=== PATIENT | female | born 1975 | race Caucasian/White ===

== ENCOUNTER 2016-12-24 11:27 | Emergency (ER) | payer OTHER ==
--- NOTE | 2016-12-24 20:45 | ED NURSING NOTES ---
Clinical Report - Nurses [facility] [address] [place] [address] 12/24/2016 11:28 Patient: GUMARO ROTHMAN TRIAGE Triage time 11:28. Acuity: LEVEL 3. Chief Complaint: SUICIDAL THOUGHTS and THOUGHTS OF HARMING SELF and ATTEMPT TO HARM SELF (OD). 11:12/24/16. 11:12/24/16. Alert. No acute distress. ( Pt took 20 Zoloft, then vomited, then took 10 more. Pt has been hearing voices and stated to harm herself. Pt with past history and hospitalization of SI.). ED COMA SCORE: Ed Coma Scale: 15- eyes open spontaneously (4); best verbal response- oriented x 4 (5); best motor response- obeys commands (6). --11:36 Faisal Marroquin R.N. 11:12/24/16. BP: 135/84. HR: 85. RR: 20. O2 saturation: 100% on room air. Temp: 98.4 F (oral). Pain level now: 0/10. --11:36 Faisal Marroquin R.N. BREATHALYZER: Breathalyzer (.00). --11:50 Mary Maldonado BREATHALYZER: Breathalyzer (.00). --11:51 Mary Maldonado. Weight: 72.5 kg stated. Height/Length: 63 inches Per Patient. BMI: 28.3. --11:30 Faisal Marroquin R.N. Medications Sertraline HCl Oral 150mg, daily. --11:33 Faisal Marroquin R.N. Medication/allergy information source: the patient and EMS. --11:36 Faisal Marroquin R.N. Allergies Sulfa Antibiotics. --11:33 Faisal Marroquin R.N. Prozac. --11:33 Faisal Marroquin R.N. History Arrived by private vehicle, and unaccompanied. 11:12/24/16. Treatment VENEER DRIER: None. PAST MEDICAL HX: Last normal menstrual period- 2 weeks ago. Immunizations not up to date. SOCIAL HX: Current every day light tobacco smoker (cigarette)- less than 1/2 a pack per day. History of occasional drug use: cocaine, marijuana. No alcohol use. No infectious disease exposure. ABUSE ASSESSMENT: No report of abuse. SELF HARM ASSESSMENT: A self harm assessment was performed. The patient answered "yes" to the question "Have you recently felt down, depressed, or hopeless?", "Have you noticed less interest or pleasure in doing things?", "Do you have thoughts of harming or killing yourself?", "Are you here because you tried to hurt yourself?", "Have you ever tried to hurt yourself before today?" and "Have you recently had thoughts about harming or killing others?" and "no" to the question "Do you have any dangerous items in your possession?". The patient reports their behavior as anxious. In the ED the patient has been withdrawn. A further in-depth assessment is planned. The patient has been placed under 1-on-1 supervision with bedside precautions. The patient was placed in a precautionary setting. Clothes and valuables were removed and placed at the nurses station. The ED physician has been notified. FALL RISK ASSESSMENT: Fall risk assessment completed. No fall risk identified. NUTRITIONAL RISK ASSESSMENT: The nutritional risk assessment revealed no deficiencies. FUNCTIONAL ASSESSMENT: Functional assessment: no impairments noted. LEARNING NEEDS ASSESSMENT: The learning needs assessment revealed no barriers. SKIN INTEGRITY ASSESSMENT: Skin integrity risk assessment completed. No skin integrity risk identified. --11:36 Faisal Marroquin R.N. SOCIAL HX: Occasional alcohol use. --11:37 Faisal Marroquin R.N. Treatment VENEER DRIER: See EMS report. HR: 85. RR: 18. O2 saturation: 100 % room air. --11:37 Faisal Marroquin R.N. SOCIAL HX: History of drug use: cocaine, methamphetamines. Is a recovering addict. (Pt states she used cocaine, used for a year straight, at this time pt used meth on and off. Pt states she did not used for 6 months and relapsed, last used this past Saturday). --18:31 Faisal Marroquin R.N. PROBLEMS: Anxiety Reaction. Depression. Suicidal Ideation. --11:34 Faisal Marroquin R.N. Acute Pain. Pharyngitis. Dental Pain. Fibromyalgia. ADD - Attention Deficit Disorder. Bipolar Disorder. Condyloma Acuminatum. Herpes Genitalis. Abdominal Pain. Vaginitis. Immunizations. Ovarian Cyst. Vaginal Delivery. Nephrolithiasis. --18:22 Faisal Marroquin R.N. Pelvic Inflammatory Disease [RuleOut]. --18:22 Faisal Marroquin R.N. ADDITIONAL SURGERIES: Gallbladder Surgery. --11:34 Faisal Marroquin R.N. Cholecystectomy. LEEP. Ureteral Stent. --18:22 Faisal Marroquin R.N. Assessment 11:12/24/16. --11:36 Faisal Marroquin R.N. Interventions 11:12/24/16. 11:12/24/16. ID and allergy band on patient. ID and allergy band checked. Protocol initiated (SI). To treatment room. --11:36 Faisal Marroquin R.N. PHYSICAL ASSESSMENT 11:35 12/24/16. Ambulatory to room. GENERAL / NEURO / PSYCH: Alert. Oriented X 4. Appears anxious. Patient's mood/affect appears abnormal. Patient appears calm and cooperative. Appears anxious. RESPIRATORY: Respirations not labored. CVS: Capillary refill less than 2 seconds. SKIN: Skin is warm and dry. --11:35 Faisal Marroquin R.N. NURSING PROGRESS NOTES 11:35 12/24/16. The plan of care for this patient has been created. Patient gowned. Head of bed elevated. Suicide precautions maintained: a safety sweep of the room has been completed. Room made safe and stripped of hazardous items. Continuous one on one supervision, checks performed every 15 minutes, clothing / valuables removed and placed at the nurse's station. Patient placed in direct sight of the nurse's station. ED Physician has been notified. Two patient identifiers checked. Call light placed in reach. Side rails up x 2. Bed placed in lowest position. Brakes of bed on. Brakes of chair on. --11:35 Faisal Marroquin R.N. 11:36 12/24/16. Patient ready for evaluation- chart flagged and notification provided. --11:36 Faisal Marroquin R.N. 12:03 12/24/16. Patient ID band checked for patient name and birthdate. Clean catch urine collected with return of yellow-colored urine; sample sent to lab for drug screen. Specimen labeled in the presence of the patient. --12:03 Faisal Marroquin R.N. 12:27 12/24/16. ( Poison Control center called and advised to order CMP, Tyelonol and ASA level and ECG). --12:27 Faisal Marroquin R.N. 12:32 12/24/2016 Site #1 started via IV in the right hand with an 22g angiocath; two attempts. Saline lock flushed. --12:32 Louisa Morrison R.N. 12:38 12/24/16. EKG time: (6909). EKG was ordered, performed by a tech and shown to the ED physician. --12:38 Faisal Marroquin R.N. 12:44 12/24/16. Cardiac rhythm: normal sinus rhythm; (73). monitoring analyst, pulse oximeter and NIBP monitor placed on patient; monitor alarms on. --12:44 Faisal Marroquin R.N. 12:45 12/24/16. BP: 122/76. HR: 64. RR: 14. O2 saturation: 100% on room air. --12:45 Faisal Marroquin R.N. 12:45 12/24/16. Cardiac rhythm: normal sinus rhythm. --12:45 Faisal Marroquin R.N. 12:46 12/24/16. The patient reports no complaints and she is calm, resting quietly and sleeping. ( Denies SI currently, pt states she is feeling depressed currently and feels that her OD attempt was "stupid idea"). GENERAL / NEURO / PSYCH: Alert. Oriented X 4. Patient appears calm and cooperative. --12:46 Faisal Marroquin R.N. 13:48 12/24/16. ( PAT team being called). --13:48 Faisal Marroquin R.N. 13:59 12/24/16. ( PAT team called at 1350, will call back on report time to [facility]). --13:59 Faisal Marroquin R.N. 14:00 12/24/16. BP: 126/74 (regular adult cuff) taken on the left arm, via an automated monitor, while lying. HR: 75 (regular). RR: 21. O2 saturation: 100% on room air. Pain level now: 0/10. --14:41 Louisa Morrison R.N. 14:00 late entry - PM. Cardiac rhythm: normal sinus rhythm. Reassurance given. GENERAL / NEURO / PSYCH: The patient reports anxiety. Alert. Oriented X 4. Patient appears calm and cooperative. Two patient identifiers checked. Call light placed in reach. Side rails up x 1. Brakes of bed on. Brakes of chair on. --14:41 Louisa Morrison R.N. 14:59 12/24/16. Cardiac rhythm: normal sinus rhythm. --14:59 Faisal Marroquin R.N. 14:59 12/24/16. BP: 130/71. HR: 75. RR: 18. O2 saturation: 100% on room air. --14:59 Faisal Marroquin R.N. 15:28 12/24/16. Patient informed about reason for wait and about plan of care (PAT team). --15:28 Faisal Marroquin R.N. 15:46 12/24/2016 Tylenol (Acetaminophen) PO 1000 mg given. Allergies verified and confirmed 5 rights. --15:46 Faisal Marroquin R.N. 15:47 12/24/16. BP: 131/76. HR: 88. RR: 16. O2 saturation: 100% on room air. --15:47 Faisal Marroquin R.N. 15:47 12/24/16. Cardiac rhythm: normal sinus rhythm; (85). --15:47 Faisal Marroquin R.N. 15:48 12/24/16. ( PAT team is on the way). --15:48 Faisal Marroquin R.N. 15:53 12/24/2016 NICOTINE Topical 21 mg. Applied to the right upper arm. Allergies verified and confirmed 5 rights. --15:53 Faisal Marroquin R.N. 16:04 12/24/16. ( PAT team here). --16:04 Faisal Marroquin R.N. 17:00 12/24/2016 Xanax (ALPRAZolam) PO 0.5 mg given. Allergies verified and confirmed 5 rights. --17:00 Faisal Marroquin R.N. 17:00 12/24/16. BP: 121/72. HR: 80. RR: 12. O2 saturation: 99% on room air. --17:01 Faisal Marroquin R.N. 17:12/24/16. Cardiac rhythm: normal sinus rhythm. --17:01 Faisal Marroquin R.N. 17:36 12/24/16. Patient and family informed about reason for wait and about plan of care. --17:36 Faisal Mraroquin R.N. 17:36 12/24/16. ( Pt to be a transfer for psych admission). --17:36 Faisal Marroquin R.N. 18:06 12/24/16. ( Gave pt a snack, juice. Pt is calm and feels better after the PO Xanax). --18:06 Faisal Marroquin R.N. 18:21 12/24/16. Cardiac rhythm: normal sinus rhythm; (82). --18:21 Faisal Marroquin R.N. 18:20 12/24/16. BP: 114/75. HR: 82. RR: 18. O2 saturation: 98% on room air. Temp: 98.2 F. Pain level now: 05/11. --18:21 Faisal Marroquin R.N. 18:21 12/24/16. ( Pt to transfer, possibly [facility], PAT team is working on this). --18:21 Faisal Marroquin R.N. 18:24 12/24/16. ( Pt is feeling anxious, pt aware she is transferring to higher level of care. This helped calm pt. Reinforced to patient that she needs to sleep. Will monitor close.). --18:24 Faisal Marroquin R.N. 18:24 12/24/16. Patient informed about reason for wait and about plan of care. --18:24 Faisal Marroquin R.N. 18:52 12/24/16. ( Updated poison control about pts status, informed about pts status, POC and that pt will be transferring to [facility]). --18:52 Faisal Marroquin R.N. 19:03 12/24/16. Care transferred and report given (Aaron Villarreal RN). --19:03 Faisal Marroquin R.N. 19:03. Care transferred and report received. --19:07 Aaron Saavedra R.N. 19:17 12/24/16. ( Gave pt water, pt has voided multiple times, assisted pt with walking to bathroom for suicide precautions. Pt has been calm and compliant while in ER.). --19:17 Faisal Marroquin R.N. 19:29 12/24/16. ( ETA of Ambulance is 2 hrs, notified [facility] RN, Edelmira, RN pt to go to bed 714 Bed 1). --19:29 Faisal Marroquin R.N. 19:40 12/24/2016 Ibuprofen PO 600 mg given. Allergies verified and confirmed 5 rights. --19:40 Aaron Saavedra R.N. 20:14 Assisted pt to restroom and back to bed. --20:14 Aaron Saavedra R.N. 20:16 Patient given her cell phone - ok'd by Dr. Edwards. --20:17 Aaron Saavedra R.N. DISPOSITION / DISCHARGE 19:28 12/24/16. Report was given to a nurse via a phone call. Report included patient's care, treatment, medications, reviewed medication reconcilliation, and condition (including any recent changes or anticipated changes). All questions were answered. Report was acknowledged and care was transferred. (Edelmira, MISTY at [facility] at [phone]). --19:28 Faisal Marroquin R.N. 20:36. Condition at departure: stable. No learning barriers present. Transferred to [facility]. Summary of care provided to transport team. FALL RISK ASSESSMENT: Fall risk assessment completed. No fall risk identified. --20:36 Aaron Saavedra R.N. 20:35 12/24/16. BP: 118/73. HR: 80. RR: 17. O2 saturation: 100% on room air. Pain level now: 04/10. --20:36 Aaron Saavedra R.N. Report was given in person. Report included patient's care, treatment, medications, reviewed medication reconcilliation, and condition (including any recent changes or anticipated changes). All questions were answered. Report was acknowledged. ([facility]). --20:41 Aaron Saavedra R.N. 20:47 Callled and informed Edelmira of updated ETA. --20:48 Aaron Saavedra R.N. Departure time: 21:00. --21:00 Aaron Saavedra R.N. Locked/Released at 12/24/2016 21:57 by Aaron Saavedra R.N.
--- NOTE | 2016-12-24 20:45 | ED CLINICAL REPORT ---
Clinical Report - Physicians/Mid Levels [facility] [address] [place] [address] 12/24/2016 11:28 Patient: GUMARO ROTHMAN Time Seen: 11:45 Dec 24 2016. Arrived- By ambulance. Historian- EMS personnel. HISTORY OF PRESENT ILLNESS Chief Complaint: DRUG OVERDOSE and SUICIDE ATTEMPT. This occurred just prior to arrival. (patient indicates that she tried to kill herself today. She feels she's a burden to her family as she lost her job and has had to move home. That she has small kids but feels it be better off with her mother. States that her mother does not like her anyway. Indicates that her grandmother committed suicide and was successful. She indicates she's had depression for several years but it got worse over the last couple of weeks due to the loss of her job. She's been on Zoloft for some time to control her symptoms. She says that she took 20 Zoloft and then vomited them up. She then tried to swallow 10 more Zoloft And vomited again. Then tried to swallow 5 more Zoloft. Patient indicates she's never been this intense about committing suicide. She has had prior milder attempts. She denies any other substances.). No toxic symptoms present. Single drug taken- Zolioft: Up to 35 tabs. The patient has experienced situational problems. No alcohol recently or recent drug use. The symptoms are described as moderate. The patient has been depressed. Has had suicidal thoughts. Similar symptoms previously: Milder. Recent medical care: Not recently seen/assessed. REVIEW OF SYSTEMS The patient has had a headache. No dizziness, weakness, chest pain, palpitations or abdominal pain. No vomiting, diarrhea, black stools, fever or sore throat. No cough, difficulty breathing, difficulty with urination, skin rash or enlarged lymph nodes. All systems otherwise negative, except as recorded above. PAST HISTORY ( Anxiety Reaction. Depression. Suicidal Ideation. --11:34 Faisal Marroquin, RReinaldo. ADDITIONAL SURGERIES: Gallbladder Surgery.). Medications: Sertraline HCl Oral 150mg, daily. Allergies: Prozac. Sulfa Antibiotics. SOCIAL HISTORY Heavy tobacco smoker (cigarette)- less than 1 pack per day. History of drug use: cocaine, marijuana. No alcohol use. ADDITIONAL NOTES The nursing notes have been reviewed. PHYSICAL EXAM Vital Signs: 12/24/2016 11:28 BP: 135/84. HR: 85. RR: 20. O2 saturation: 100%. Temp: 98.4 F. Pain level now: 0/10. Appearance: Alert. Anxious. Is tearful. Eyes: Pupils equal, round and reactive to light. No nystagmus. Extraocular movements normal. ENT: Normal ENT inspection. TM's normal. Pharynx normal. Neck: Normal inspection. Neck supple. CVS: Normal heart rate and rhythm. Heart sounds normal. Pulses normal. Respiratory: No respiratory distress. Breath sounds normal. Abdomen: Soft and nontender. Back: Normal inspection. Skin: Skin warm. Normal skin color. No rash. Extremities: Extremities exhibit normal ROM. No lower extremity edema. Neuro: Alert. Oriented X 3. Mood/affect normal. Speech normal. Cranial nerves normal (as tested). No cerebellar findings. No motor deficit. No sensory deficit. Reflexes normal. LABS, X-RAYS, AND EKG EKG: Normal sinus rhythm. Rate: 58. Bradycardia. Normal P waves. Normal QRS complex. Normal axis. Laboratory Tests: Urine: (CASTRO: 12/24/2016 11:35) ( [facility] 12/24/2016 12:36) Final results Test Result Flag Units (Reference) URINE NEGATIVE CBC w Diff: (CASTRO: 12/24/2016 12:40) ( [facility] 12/24/2016 12:57) Final results Test Result Flag Units (Reference) WHITE BLOOD COUNT 9.3 K/uL (4.5-11.5) RED BLOOD COUNT 4.35 M/uL (4.00-5.20) HEMOGLOBIN 13.6 gm/dL (12.0-16.0) HEMATOCRIT 40.0 % (36.0-46.0) MEAN CELL VOLUME 92 fL (80-100) MEAN CORPUSCULAR HGB 31 pg (26-34) MEAN CORPUSCULAR HGB CONC 34 g/dL (31-37) RED CELL DISTRIBUTION WIDTH 11.8 % (11.6-14.8) PLATELET COUNT 245 K/uL (150-400) NEUTROPHIL % 73.8 % (50-75) LYMPH % 16.8 L % (25-40) MONO % 8.3 % (3-14) EOSINOPHIL % 0.4 % (0-4) BASOPHIL % 0.7 % (0-2) Salicylate Level: (CASTRO: 12/24/2016 12:40) ( MsgRcvd 12/24/2016 13:14) Final results Test Result Flag Units (Reference) SALICYLATE 3.2 mg/dL (2.8-20) CMP: (CASTRO: 12/24/2016 12:40) ( MsgRcvd 12/24/2016 13:27) Final results Test Result Flag Units (Reference) GLUCOSE 116 H mg/dL (70-110) BUN 8 mg/dL (7-18) CREATININE 0.6 mg/dL (0.6-1.3) Estimated GFR >60 mL/min Estimated GFR- >60 mL/min Note: Persistent reduction over 3 months in eGFR<60 mL/min/1.73 m2 defines CKD. Patients with eGFR values>=60 mL/min/1.73 m2 may also have CKD if evidence ofpersistent proteinuria. Additional information may be foundat www.kidney.org. SODIUM 140 mmol/L (136-145) POTASSIUM 3.6 mmol/L (3.5-5.1) CHLORIDE 104 mmol/L (98-107) CARBON DIOXIDE 25 mmol/L (21-32) CALCIUM 8.9 mg/dL (8.5-10.1) TOTAL PROTEIN 7.1 g/dL (6.4-8.2) ALBUMIN 3.6 g/dL (3.3-5.0) BILIRUBIN, TOTAL 0.3 mg/dL (0.0-1.0) ALKALINE PHOSPHATASE 55 U/L (46-116) AST (SGOT) 15 U/L (15-37) ALT (SGPT) 21 U/L (12-78) ACETAMINOPHEN < 3 L ug/mL (10-30) Urine Drug Screen: (CASTRO: 12/24/2016 11:35) ( MsgRcvd 12/24/2016 12:25) Final results Test Result Flag Units (Reference) AMPHETAMINE/METHAMPHETAMINE NEGATIVE (NEGATIVE) BARBITURATE NEGATIVE (NEGATIVE) BENZODIAZEPINE NEGATIVE (NEGATIVE) CANNABINOID POSITIVE H (NEGATIVE) COCAINE NEGATIVE (NEGATIVE) ECSTASY NEGATIVE (NEGATIVE) METHADONE NEGATIVE (NEGATIVE) OPIATE NEGATIVE (NEGATIVE) The urine drug screen is a qualitative screening test fordrug overdose and abuse. All screen results should beconsidered as presumptive.Drugs screened for are as follows:BenzodiazepinesCocaineAmphetamines/MetamphetaminesTHC (Tetrahydrocannabinol)OpiatesBarbituratesEcstasyMethadonePositive results are unconfirmed. For confirmation, notifythe lab for the specimen to be sent to the reference lab.All confirmations must be performed by a differentmethodology.The ingestion of natural herbal and plant productscontaining Ephedra/Ephedra metabolites can produce in urineone or more substances capable of cross reacting withamphetamine/methamphetamine immunoassays. These testsprovide a preliminary result only. A more specificalternative chemical method must be used to obtain aconfirmed analytical result. . PROGRESS AND PROCEDURES Course of Care: patient's OD was intentional with admission to try to kill herself. She is now involuntary until P clears. Her urine tox is negative and her alcohol level 0. She does not have a toxidrome and is cleared to be seen by P. 13:44 12/24/16. P called NO toxidrome with OD meds taken. Tylenol then motrin for OSULLIVAN Xanax 0.5 mg po for anxiety. 20:12 12/24/16. [facility] has evaluated the patient and found a bed for her at the [facility]. Patient will not contract for safety. Patient is stable. Patient/family counseled. Old medical records ordered. Disposition: Transferred to [facility]. CLINICAL IMPRESSION Intentional single drug overdose (Zoloft). Suicide attempt (Electronically signed by Evin Edwards MD 12/25/2016 10:13)
--- NOTE | 2016-12-24 20:45 | ED NURSING NOTES ---
Clinical Report - [facility] [address] [place] [address] 12/24/2016 11:28 Patient: GUMARO ROTHMAN TRIAGE Triage time 11:28. Acuity: LEVEL 3. Chief Complaint: SUICIDAL THOUGHTS and THOUGHTS OF HARMING SELF and ATTEMPT TO HARM SELF (OD). 11:12/24/16. 11:12/24/16. Alert. No acute distress. ( Pt took 20 Zoloft, then vomited, then took 10 more. Pt has been hearing voices and stated to harm herself. Pt with past history and hospitalization of SI.). ED COMA SCORE: Ed Coma Scale: 15- eyes open spontaneously (4); best verbal response- oriented x 4 (5); best motor response- obeys commands (6). --11:36 Faisal Marroquin R.N. 11:12/24/16. BP: 135/84. HR: 85. RR: 20. O2 saturation: 100% on room air. Temp: 98.4 F (oral). Pain level now: 0/10. --11:36 Faisal Marroquin R.N. BREATHALYZER: Breathalyzer (.00). --11:50 Mary Mladonado BREATHALYZER: Breathalyzer (.00). --11:51 Mary Maldonado. Weight: 72.5 kg stated. Height/Length: 63 inches Per Patient. BMI: 28.3. --11:30 Faisal Marroquin R.N. Medications Sertraline HCl Oral 150mg, daily. --11:33 Faisal Marroquin R.N. Medication/allergy information source: the patient and EMS. --11:36 Faisal Marroquin R.N. Allergies Sulfa Antibiotics. --11:33 Faisal Marroquin R.N. Prozac. --11:33 Faisal Marroquin R.N. History Arrived by private vehicle, and unaccompanied. 11:12/24/16. Treatment AUTOMATION LEAD: None. PAST MEDICAL HX: Last normal menstrual period- 2 weeks ago. Immunizations not up to date. SOCIAL HX: Current every day light tobacco smoker (cigarette)- less than 1/2 a pack per day. History of occasional drug use: cocaine, marijuana. No alcohol use. No infectious disease exposure. ABUSE ASSESSMENT: No report of abuse. SELF HARM ASSESSMENT: A self harm assessment was performed. The patient answered "yes" to the question "Have you recently felt down, depressed, or hopeless?", "Have you noticed less interest or pleasure in doing things?", "Do you have thoughts of harming or killing yourself?", "Are you here because you tried to hurt yourself?", "Have you ever tried to hurt yourself before today?" and "Have you recently had thoughts about harming or killing others?" and "no" to the question "Do you have any dangerous items in your possession?". The patient reports their behavior as anxious. In the ED the patient has been withdrawn. A further in-depth assessment is planned. The patient has been placed under 1-on-1 supervision with bedside precautions. The patient was placed in a precautionary setting. Clothes and valuables were removed and placed at the nurses station. The ED physician has been notified. FALL RISK ASSESSMENT: Fall risk assessment completed. No fall risk identified. NUTRITIONAL RISK ASSESSMENT: The nutritional risk assessment revealed no deficiencies. FUNCTIONAL ASSESSMENT: Functional assessment: no impairments noted. LEARNING NEEDS ASSESSMENT: The learning needs assessment revealed no barriers. SKIN INTEGRITY ASSESSMENT: Skin integrity risk assessment completed. No skin integrity risk identified. --11:36 Faisal Marroquin R.N. SOCIAL HX: Occasional alcohol use. --11:37 Faisal Marroquin R.N. Treatment AUTOMATION LEAD: See EMS report. HR: 85. RR: 18. O2 saturation: 100 % room air. --11:37 Faisal Marroquin R.N. SOCIAL HX: History of drug use: cocaine, methamphetamines. Is a recovering addict. (Pt states she used cocaine, used for a year straight, at this time pt used meth on and off. Pt states she did not used for 6 months and relapsed, last used this past Saturday). --18:31 Faisal Marroquin R.N. PROBLEMS: Anxiety Reaction. Depression. Suicidal Ideation. --11:34 Faisal Marroquin R.N. Acute Pain. Pharyngitis. Dental Pain. Fibromyalgia. ADD - Attention Deficit Disorder. Bipolar Disorder. Condyloma Acuminatum. Herpes Genitalis. Abdominal Pain. Vaginitis. Immunizations. Ovarian Cyst. Vaginal Delivery. Nephrolithiasis. --18:22 Faisal Marroquin R.N. Pelvic Inflammatory Disease [RuleOut]. --18:22 Faisal Marroquin R.N. ADDITIONAL SURGERIES: Gallbladder Surgery. --11:34 Faisal Marroquin R.N. Cholecystectomy. LEEP. Ureteral Stent. --18:22 Faisal Marroquin R.N. Assessment 11:12/24/16. --11:36 Faisal Marroquin R.N. Interventions 11:12/24/16. 11:12/24/16. ID and allergy band on patient. ID and allergy band checked. Protocol initiated (SI). To treatment room. --11:36 Faisal Marroquin R.N. PHYSICAL ASSESSMENT 11:35 12/24/16. Ambulatory to room. GENERAL / NEURO / PSYCH: Alert. Oriented X 4. Appears anxious. Patient's mood/affect appears abnormal. Patient appears calm and cooperative. Appears anxious. RESPIRATORY: Respirations not labored. CVS: Capillary refill less than 2 seconds. SKIN: Skin is warm and dry. --11:35 Faisal Marroquin R.N. NURSING PROGRESS NOTES 11:35 12/24/16. The plan of care for this patient has been created. Patient gowned. Head of bed elevated. Suicide precautions maintained: a safety sweep of the room has been completed. Room made safe and stripped of hazardous items. Continuous one on one supervision, checks performed every 15 minutes, clothing / valuables removed and placed at the nurse's station. Patient placed in direct sight of the nurse's station. ED Physician has been notified. Two patient identifiers checked. Call light placed in reach. Side rails up x 2. Bed placed in lowest position. Brakes of bed on. Brakes of chair on. --11:35 Faisal Marroquin R.N. 11:36 12/24/16. Patient ready for evaluation- chart flagged and notification provided. --11:36 Faisal Marroquin R.N. 12:03 12/24/16. Patient ID band checked for patient name and birthdate. Clean catch urine collected with return of yellow-colored urine; sample sent to lab for drug screen. Specimen labeled in the presence of the patient. --12:03 Faisal Marroquin R.N. 12:27 12/24/16. ( Poison Control center called and advised to order CMP, Tyelonol and ASA level and ECG). --12:27 Faisal Marroquin R.N. 12:32 12/24/2016 Site #1 started via IV in the right hand with an 22g angiocath; two attempts. Saline lock flushed. --12:32 Louisa Morrison R.N. 12:38 12/24/16. EKG time: (7329). EKG was ordered, performed by a tech and shown to the ED physician. --12:38 Faisal Marroquin R.N. 12:44 12/24/16. Cardiac rhythm: normal sinus rhythm; (73). weapons engineer, pulse oximeter and NIBP monitor placed on patient; monitor alarms on. --12:44 Faisal Marroquin R.N. 12:45 12/24/16. BP: 122/76. HR: 64. RR: 14. O2 saturation: 100% on room air. --12:45 Faisal Marroquin R.N. 12:45 12/24/16. Cardiac rhythm: normal sinus rhythm. --12:45 Faisal Marroquin R.N. 12:46 12/24/16. The patient reports no complaints and she is calm, resting quietly and sleeping. ( Denies SI currently, pt states she is feeling depressed currently and feels that her OD attempt was "stupid idea"). GENERAL / NEURO / PSYCH: Alert. Oriented X 4. Patient appears calm and cooperative. --12:46 Faisal Marroquin R.N. 13:48 12/24/16. ( PAT team being called). --13:48 Faisal Marroquin R.N. 13:59 12/24/16. ( PAT team called at 1350, will call back on report time to [facility]). --13:59 Faisal Marroquin R.N. 14:00 12/24/16. BP: 126/74 (regular adult cuff) taken on the left arm, via an automated monitor, while lying. HR: 75 (regular). RR: 21. O2 saturation: 100% on room air. Pain level now: 0/10. --14:41 Louisa Morrison R.N. 14:00 late entry - PM. Cardiac rhythm: normal sinus rhythm. Reassurance given. GENERAL / NEURO / PSYCH: The patient reports anxiety. Alert. Oriented X 4. Patient appears calm and cooperative. Two patient identifiers checked. Call light placed in reach. Side rails up x 1. Brakes of bed on. Brakes of chair on. --14:41 Louisa Morrison R.N. 14:59 12/24/16. Cardiac rhythm: normal sinus rhythm. --14:59 Faisal Marroquin R.N. 14:59 12/24/16. BP: 130/71. HR: 75. RR: 18. O2 saturation: 100% on room air. --14:59 Faisal Marroquin R.N. 15:28 12/24/16. Patient informed about reason for wait and about plan of care (PAT team). --15:28 Faisal Marroquin R.N. 15:46 12/24/2016 Tylenol (Acetaminophen) PO 1000 mg given. Allergies verified and confirmed 5 rights. --15:46 Faisal Marroquin R.N. 15:47 12/24/16. BP: 131/76. HR: 88. RR: 16. O2 saturation: 100% on room air. --15:47 Faisal Marroquin R.N. 15:47 12/24/16. Cardiac rhythm: normal sinus rhythm; (85). --15:47 Faisal Marroquin R.N. 15:48 12/24/16. ( PAT team is on the way). --15:48 Faisal Marroquin R.N. 15:53 12/24/2016 NICOTINE Topical 21 mg. Applied to the right upper arm. Allergies verified and confirmed 5 rights. --15:53 Faisal Marroquin R.N. 16:04 12/24/16. ( PAT team here). --16:04 Faisal Marroquin R.N. 17:00 12/24/2016 Xanax (ALPRAZolam) PO 0.5 mg given. Allergies verified and confirmed 5 rights. --17:00 Faisal Marroquin R.N. 17:00 12/24/16. BP: 121/72. HR: 80. RR: 12. O2 saturation: 99% on room air. --17:01 Faisal Marroquin R.N. 17:12/24/16. Cardiac rhythm: normal sinus rhythm. --17:01 Faisal Marroquin R.N. 17:36 12/24/16. Patient and family informed about reason for wait and about plan of care. --17:36 Faisal Marroquin R.N. 17:36 12/24/16. ( Pt to be a transfer for psych admission). --17:36 Faisal Marroquin R.N. 18:06 12/24/16. ( Gave pt a snack, juice. Pt is calm and feels better after the PO Xanax). --18:06 Faisal Marroquin R.N. 18:21 12/24/16. Cardiac rhythm: normal sinus rhythm; (82). --18:21 Faisal Marroquin R.N. 18:20 12/24/16. BP: 114/75. HR: 82. RR: 18. O2 saturation: 98% on room air. Temp: 98.2 F. Pain level now: 05/11. --18:21 Faisal Marroquin R.N. 18:21 12/24/16. ( Pt to transfer, possibly [facility], PAT team is working on this). --18:21 Faisal Marroquin R.N. 18:24 12/24/16. ( Pt is feeling anxious, pt aware she is transferring to higher level of care. This helped calm pt. Reinforced to patient that she needs to sleep. Will monitor close.). --18:24 Faisal Marroquin R.N. 18:24 12/24/16. Patient informed about reason for wait and about plan of care. --18:24 Faisal Marroquin R.N. 18:52 12/24/16. ( Updated poison control about pts status, informed about pts status, POC and that pt will be transferring to [facility]). --18:52 Faisal Marroquin R.N. 19:03 12/24/16. Care transferred and report given (Aaron Villarreal RN). --19:03 Faisal Marroquin R.N. 19:03. Care transferred and report received. --19:07 Aaron Saavedra R.N. 19:17 12/24/16. ( Gave pt water, pt has voided multiple times, assisted pt with walking to bathroom for suicide precautions. Pt has been calm and compliant while in ER.). --19:17 Faisal Marroquin R.N. 19:29 12/24/16. ( ETA of Ambulance is 2 hrs, notified [facility] RN, Edelmira, RN pt to go to bed 714 Bed 1). --19:29 Faisal Marroquin R.N. 19:40 12/24/2016 Ibuprofen PO 600 mg given. Allergies verified and confirmed 5 rights. --19:40 Aaron Saavedra R.N. 20:14 Assisted pt to restroom and back to bed. --20:14 Aaron Saavedra R.N. 20:16 Patient given her cell phone - ok'd by Dr. Edwards. --20:17 Aaron Saavedra R.N. DISPOSITION / DISCHARGE 19:28 12/24/16. Report was given to a nurse via a phone call. Report included patient's care, treatment, medications, reviewed medication reconcilliation, and condition (including any recent changes or anticipated changes). All questions were answered. Report was acknowledged and care was transferred. (Edelmira, MISTY at [facility] at [phone]). --19:28 Faisal Marroquin R.N. 20:36. Condition at departure: stable. No learning barriers present. Transferred to [facility]. Summary of care provided to transport team. FALL RISK ASSESSMENT: Fall risk assessment completed. No fall risk identified. --20:36 Aaron Saavedra R.N. 20:35 12/24/16. BP: 118/73. HR: 80. RR: 17. O2 saturation: 100% on room air. Pain level now: 04/10. --20:36 Aaron Saavedra R.N. Report was given in person. Report included patient's care, treatment, medications, reviewed medication reconcilliation, and condition (including any recent changes or anticipated changes). All questions were answered. Report was acknowledged. ([facility]). --20:41 Aaron Saavedra R.N. 20:47 Callled and informed Edelmira of updated ETA. --20:48 Aaron Saavedra R.N. Departure time: 21:00. --21:00 Aaron Saavedra R.N. Locked/Released at 12/24/2016 21:57 by Aaron Saavedra R.N.
--- NOTE | 2016-12-24 20:45 | ED ORDER SUMMARY ---
..... Patient: GUMARO ROTHMAN OrderSheet [facility] VisitID: [id number] [place] [address] 41y, F Registration Date/Time: 12/24/2016 ORDER SHEET Weight: 72.5 kg (stated) Allergies: Sulfa Antibiotics, Prozac GENERAL ORDERS: Urine Drug Screen Urgent (11:42 12/24/2016 JBoardley R.N. per protocol) (Ack 11:44 RKaruga) (11:50 JBoardley R.N.) Breathalyzer (11:42 12/24/2016 JBoardley R.N. per protocol) (Ack 11:44 RKscarlettuga) (11:50 JBoardley R.N.) - (poison control info on zoloft.) (12:06 12/24/2016 Jonathan VAUGHAN) (12:08 RKscarlettuga) Bee Breeder (Continuous) (12:12/24/2016 Jonathan VAUGHAN) (12:19 EHassan R.N.) Pulse oximeter (12:07 12/24/2016 Jonathan VAUGHAN) (12:19 EHassan R.N.) Urine Urgent (12:12/24/2016 Jonathan VAUGHAN) (Ack 12:09 RKaruga) (12:44 JBoardley R.N.) CMP Urgent (12:12/24/2016 JBoardley R.N. per protocol) (Ack 12:30 Gopiuga) (12:44 JBoardley R.N.) from Poison Control Center Acetaminophen Level Urgent (12:12/24/2016 JBoardley R.N. per protocol) (Ack 12:30 RKaruga) (12:44 JBoardley R.N.) from Poison Control Center Salicylate Level Urgent (12:12/24/2016 JBoardley R.N. per protocol) (Ack 12:30 RKscarlettuga) (12:44 JBoardley R.N.) from Poison Control Center EKG - ER Stat (12:12/24/2016 JBoardley R.N. per protocol) (Ack 12:30 RKscarlettuga) (12:38 Nila R.N.) from Poison Control Center CBC w Diff Urgent (12:28 12/24/2016 Jonathan VAUGHAN) (Ack 12:30 Isadora) (12:44 JBoardley R.N.) MEDICATION ORDERS: Tylenol PO 1,000 mg (NOW) (15:45 12/24/2016 Jonathan VAUGHAN) (15:46 Nila R.N.) Nicotine Topical 21 mg (NOW) (15:53 12/24/2016 ELENAoarcammie R.N. per protocol) (15:53 JBoardley R.N.) Xanax PO 0.5 mg (NOW) (16:44 12/24/2016 Jonathan VAUGHAN) (Ack 16:54 JBoardley R.N.) (17:00 JBoardley R.N.) Ibuprofen PO 600 mg (NOW) (19:40 12/24/2016 Elbert R.N. verbal order read back to Jonathan VAUGHAN) (19:40 Elbert R.N.) IV FLUIDS: IV Saline Lock (12:07 12/24/2016 Jonathan VAUGHAN) (12:32 Patricia R.N.) ORDER SHEET NOTES: [Electronically signed by Aaron Saavedra R.N. (21:57 12/24/2016)] [Electronically signed by Evin Edwards MD (10:13 12/25/2016)] [Electronically locked/signed by Aaron Saavedra R.N. (21:57 12/24/2016)]
--- NOTE | 2016-12-24 20:45 | ED ORDER SUMMARY ---
..... Patient: GUMARO ROTHMAN OrderSheet [facility] VisitID: [id number] [place] [address] 41y, F Registration Date/Time: 12/24/2016 ORDER SHEET Weight: 72.5 kg (stated) Allergies: Sulfa Antibiotics, Prozac GENERAL ORDERS: Urine Drug Screen Urgent (11:42 12/24/2016 JBoardley R.N. per protocol) (Ack 11:44 RKaruga) (11:50 JBoardley R.N.) Breathalyzer (11:42 12/24/2016 JBoardley R.N. per protocol) (Ack 11:44 RKscarlettuga) (11:50 JBoardley R.N.) - (poison control info on zoloft.) (12:06 12/24/2016 Jonathan VAUGHAN) (12:08 RKscarlettuga) Embosser Apprentice (Continuous) (12:12/24/2016 Jonathan VAUGHAN) (12:19 EHassan R.N.) Pulse oximeter (12:07 12/24/2016 Jonathan VAUGHAN) (12:19 EHassan R.N.) Urine Urgent (12:12/24/2016 Jonathan VAUGHAN) (Ack 12:09 RKaruga) (12:44 JBoardley R.N.) CMP Urgent (12:12/24/2016 JBoardley R.N. per protocol) (Ack 12:30 Gopiuga) (12:44 JBoardley R.N.) from Poison Control Center Acetaminophen Level Urgent (12:12/24/2016 JBoardley R.N. per protocol) (Ack 12:30 RKaruga) (12:44 JBoardley R.N.) from Poison Control Center Salicylate Level Urgent (12:12/24/2016 JBoardley R.N. per protocol) (Ack 12:30 RKscarlettuga) (12:44 JBoardley R.N.) from Poison Control Center EKG - ER Stat (12:12/24/2016 JBoardley R.N. per protocol) (Ack 12:30 RKscarlettuga) (12:38 Nila R.N.) from Poison Control Center CBC w Diff Urgent (12:28 12/24/2016 Jonathan VAUGHAN) (Ack 12:30 Isadora) (12:44 JBoardley R.N.) MEDICATION ORDERS: Tylenol PO 1,000 mg (NOW) (15:45 12/24/2016 Jonathan VAUGHAN) (15:46 Nila R.N.) Nicotine Topical 21 mg (NOW) (15:53 12/24/2016 ELENAoarcammie R.N. per protocol) (15:53 JBoardley R.N.) Xanax PO 0.5 mg (NOW) (16:44 12/24/2016 Jonathan VAUGHAN) (Ack 16:54 JBoardley R.N.) (17:00 JBoardley R.N.) Ibuprofen PO 600 mg (NOW) (19:40 12/24/2016 Elbert R.N. verbal order read back to Jonathan VAUGHAN) (19:40 Elbert R.N.) IV FLUIDS: IV Saline Lock (12:07 12/24/2016 Jonathan VAUGHAN) (12:32 Patricia R.N.) ORDER SHEET NOTES: [Electronically signed by Aaron Saavedra R.N. (21:57 12/24/2016)] [Electronically signed by Evin Edwards MD (10:13 12/25/2016)] [Electronically locked/signed by Aaron Saavedra R.N. (21:57 12/24/2016)]
--- NOTE | 2016-12-25 10:14 | ED MAR SUMMARY ---
..... Medication Administration Record [facility] [address] [place] [address] Patient: GUMARO ROTHMAN Visit ID: [id number] 41y, F Weight: 72.5 kg Height/Length: 63 in BMI: 28.3 ALLERGIES: Sulfa Antibiotics, Prozac Given 15:46 12/24/2016 Faisal Marroquin R.N. Medication Administered: TYLENOL [PO] (ACETAMINOPHEN), Dose: 1000 mg PO. Medication Ordered: Tylenol PO 1,000 mg (NOW). Given 15:53 12/24/2016 Faisal Marroquin R.N. Medication Administered: NICOTINE [TOPICAL], Dose: 21 mg Topical. Medication Ordered: Nicotine Topical 21 mg (NOW). Given 17:00 12/24/2016 Faisal Marroquin R.N. Medication Administered: XANAX [PO] (ALPRAZOLAM), Dose: 0.5 mg PO. Medication Ordered: Xanax PO 0.5 mg (NOW). Given 19:40 12/24/2016 Aaron Saavedra R.N. Medication Administered: IBUPROFEN [PO], Dose: 600 mg PO. Medication Ordered: Ibuprofen PO 600 mg (NOW).
--- NOTE | 2016-12-25 10:14 | ED DISCHARGE INSTRUCTIONS ---
Patient: GUMARO ROTHMAN General Instructions [facility] VisitID: [id number] [place] [address] 41y, F Registration Date/Time: 12/24/2016 Intentional single drug overdose (Zoloft). Suicide attempt ADDITIONAL INFORMATION Overdose, Intentional (Adult: Psych Evaluation) You have been evaluated and treated for taking a drug or chemical product with the intent to harm yourself. There is no sign of a toxic effect at this time. It is not likely that any new symptoms will appear. As a safeguard, watch for new symptoms during the next 24 hours (see below). The exact symptom will depend on the type of drug or chemical taken. An intentional overdose is likely to be a sign that you are depressed, or that you are very angry with yourself or someone else. In order to reduce the risk of harming yourself, we will arrange for you to have a psychiatric evaluation. Home Care: If LIQUID CHARCOAL was given to neutralize what was swallowed, it will cause a black color to the stools for 1-2 days. Usually, a laxative (sorbitol) is given with charcoal to speed the removal of any toxins from the intestinal tract. This may cause diarrhea for up to 24 hours. If no laxative was given with charcoal, you may get constipated. If this occurs, you may take an sifh-ugb-ldijizn laxative such as Dulcolax pills or suppository. Follow Up with your doctor if all symptoms do not resolve within 24 hours or if constipation is not relieved by one or two doses of laxatives. If you are being discharged for immediate evaluation at a psychiatric hospital or clinic on a voluntary basis, you must go directly there with a responsible adult. If you have been placed on a legal 72 hour psychiatric hold, a ride to a psychiatric facility will be arranged for you. Get Prompt Medical Attention if any of the following occur: Excess drowsiness or inability to be awakened Rapid heart beat, you feel shaky, or you have a seizure Fast breathing (over 25 breaths/minute) or slow breathing (less than 8 breaths/minute) Feeling shortness of breath Fever of 100.4F (38C) or higher, or as directed by your healthcare provider Vomiting or diarrhea for more than 24 hours Blood in stools or vomit (black or red color) Chest or abdominal pain Dizziness, weakness or fainting Thoughts of harming yourself again Overdose, Intentional (Adult: Psych Evaluation) You have been evaluated and treated for taking a drug or chemical product with the intent to harm yourself. There is no sign of a toxic effect at this time. It is not likely that any new symptoms will appear. As a safeguard, watch for new symptoms during the next 24 hours (see below). The exact symptom will depend on the type of drug or chemical taken. An intentional overdose is likely to be a sign that you are depressed, or that you are very angry with yourself or someone else. In order to reduce the risk of harming yourself, we will arrange for you to have a psychiatric evaluation. Home Care: If LIQUID CHARCOAL was given to neutralize what was swallowed, it will cause a black color to the stools for 1-2 days. Usually, a laxative (sorbitol) is given with charcoal to speed the removal of any toxins from the intestinal tract. This may cause diarrhea for up to 24 hours. If no laxative was given with charcoal, you may get constipated. If this occurs, you may take an xxam-jjs-ccjoesa laxative such as Dulcolax pills or suppository. Follow Up with your doctor if all symptoms do not resolve within 24 hours or if constipation is not relieved by one or two doses of laxatives. If you are being discharged for immediate evaluation at a psychiatric hospital or clinic on a voluntary basis, you must go directly there with a responsible adult. If you have been placed on a legal 72 hour psychiatric hold, a ride to a psychiatric facility will be arranged for you. Get Prompt Medical Attention if any of the following occur: Excess drowsiness or inability to be awakened Rapid heart beat, you feel shaky, or you have a seizure Fast breathing (over 25 breaths/minute) or slow breathing (less than 8 breaths/minute) Feeling shortness of breath Fever of 100.4F (38C) or higher, or as directed by your healthcare provider Vomiting or diarrhea for more than 24 hours Blood in stools or vomit (black or red color) Chest or abdominal pain Dizziness, weakness or fainting Thoughts of harming yourself again You have been given the following additional information: Overdose, Intentional (Adult) Overdose, Intentional (Adult) (Electronically signed by Evin Edwards MD 12/25/2016 10:13)
--- NOTE | 2016-12-25 10:14 | ED MED RECONCILIATION SUMMARY ---
Patient: SAMARIA ROTHMANECCA Garth Medication Reconciliation Report [facility] VisitID: [id number] [address] [place] [address] 41y, F Registration Date/Time: 12/24/2016 Weight: 72.5 kg Height/Length: 63 in. BMI: 28.3 ALLERGIES: Prozac, Sulfa Antibiotics The patient's Home Medications are listed below: THE FOLLOWING MEDICATIONS NEED TO BE RECONCILED: Sertraline HCl Oral 150mg, daily The source(s) of the original Home Medication information: EMS patient The following Medications were given to the patient in the Emergency Department: Tylenol [PO] PO 1000 mg, administered: 12/24/2016 3:46:00 PM NICOTINE [TOPICAL] Topical 21 mg, administered: 12/24/2016 3:53:00 PM Xanax [PO] PO 0.5 mg, administered: 12/24/2016 5:00:00 PM Ibuprofen [PO] PO 600 mg, administered: 12/24/2016 7:40:00 PM The following Medications were prescribed to the patient: None.
--- NOTE | 2016-12-25 10:14 | ED DISCHARGE INSTRUCTIONS ---
Patient: GUMARO ROTHMAN General Instructions [facility] VisitID: [id number] [place] [address] 41y, F Registration Date/Time: 12/24/2016 Intentional single drug overdose (Zoloft). Suicide attempt ADDITIONAL INFORMATION Overdose, Intentional (Adult: Psych Evaluation) You have been evaluated and treated for taking a drug or chemical product with the intent to harm yourself. There is no sign of a toxic effect at this time. It is not likely that any new symptoms will appear. As a safeguard, watch for new symptoms during the next 24 hours (see below). The exact symptom will depend on the type of drug or chemical taken. An intentional overdose is likely to be a sign that you are depressed, or that you are very angry with yourself or someone else. In order to reduce the risk of harming yourself, we will arrange for you to have a psychiatric evaluation. Home Care: If LIQUID CHARCOAL was given to neutralize what was swallowed, it will cause a black color to the stools for 1-2 days. Usually, a laxative (sorbitol) is given with charcoal to speed the removal of any toxins from the intestinal tract. This may cause diarrhea for up to 24 hours. If no laxative was given with charcoal, you may get constipated. If this occurs, you may take an [id number]-rka-bsgagpe laxative such as Dulcolax pills or suppository. Follow Up with your doctor if all symptoms do not resolve within 24 hours or if constipation is not relieved by one or two doses of laxatives. If you are being discharged for immediate evaluation at a psychiatric hospital or clinic on a voluntary basis, you must go directly there with a responsible adult. If you have been placed on a legal 72 hour psychiatric hold, a ride to a psychiatric facility will be arranged for you. Get Prompt Medical Attention if any of the following occur: Excess drowsiness or inability to be awakened Rapid heart beat, you feel shaky, or you have a seizure Fast breathing (over 25 breaths/minute) or slow breathing (less than 8 breaths/minute) Feeling shortness of breath Fever of 100.4F (38C) or higher, or as directed by your healthcare provider Vomiting or diarrhea for more than 24 hours Blood in stools or vomit (black or red color) Chest or abdominal pain Dizziness, weakness or fainting Thoughts of harming yourself again Overdose, Intentional (Adult: Psych Evaluation) You have been evaluated and treated for taking a drug or chemical product with the intent to harm yourself. There is no sign of a toxic effect at this time. It is not likely that any new symptoms will appear. As a safeguard, watch for new symptoms during the next 24 hours (see below). The exact symptom will depend on the type of drug or chemical taken. An intentional overdose is likely to be a sign that you are depressed, or that you are very angry with yourself or someone else. In order to reduce the risk of harming yourself, we will arrange for you to have a psychiatric evaluation. Home Care: If LIQUID CHARCOAL was given to neutralize what was swallowed, it will cause a black color to the stools for 1-2 days. Usually, a laxative (sorbitol) is given with charcoal to speed the removal of any toxins from the intestinal tract. This may cause diarrhea for up to 24 hours. If no laxative was given with charcoal, you may get constipated. If this occurs, you may take an [id number]-idbeqfm laxative such as Dulcolax pills or suppository. Follow Up with your doctor if all symptoms do not resolve within 24 hours or if constipation is not relieved by one or two doses of laxatives. If you are being discharged for immediate evaluation at a psychiatric hospital or clinic on a voluntary basis, you must go directly there with a responsible adult. If you have been placed on a legal 72 hour psychiatric hold, a ride to a psychiatric facility will be arranged for you. Get Prompt Medical Attention if any of the following occur: Excess drowsiness or inability to be awakened Rapid heart beat, you feel shaky, or you have a seizure Fast breathing (over 25 breaths/minute) or slow breathing (less than 8 breaths/minute) Feeling shortness of breath Fever of 100.4F (38C) or higher, or as directed by your healthcare provider Vomiting or diarrhea for more than 24 hours Blood in stools or vomit (black or red color) Chest or abdominal pain Dizziness, weakness or fainting Thoughts of harming yourself again You have been given the following additional information: Overdose, Intentional (Adult) Overdose, Intentional (Adult) (Electronically signed by Evin Edwards MD 12/25/2016 10:13)
--- NOTE | 2016-12-25 10:14 | ED MAR SUMMARY ---
..... Medication Administration Record [facility] [address] [address] Patient: GUMARO ROTHMAN Visit ID: [id number] 41y, F Weight: 72.5 kg Height/Length: 63 in BMI: 28.3 ALLERGIES: Sulfa Antibiotics, Prozac Given 15:46 12/24/2016 Faisal Marroquin R.N. Medication Administered: TYLENOL [PO] (ACETAMINOPHEN), Dose: 1000 mg PO. Medication Ordered: Tylenol PO 1,000 mg (NOW). Given 15:53 12/24/2016 Faisal Marroquin R.N. Medication Administered: NICOTINE [TOPICAL], Dose: 21 mg Topical. Medication Ordered: Nicotine Topical 21 mg (NOW). Given 17:00 12/24/2016 Faisal Marroquin R.N. Medication Administered: XANAX [PO] (ALPRAZOLAM), Dose: 0.5 mg PO. Medication Ordered: Xanax PO 0.5 mg (NOW). Given 19:40 12/24/2016 Aaron Saavedra R.N. Medication Administered: IBUPROFEN [PO], Dose: 600 mg PO. Medication Ordered: Ibuprofen PO 600 mg (NOW).
--- NOTE | 2016-12-25 10:14 | ED MED RECONCILIATION SUMMARY ---
Patient: SAMARIA ROTHMANECCA Garth Medication Reconciliation Report [facility] VisitID: [id number] [address] [place] [address] 41y, F Registration Date/Time: 12/24/2016 Weight: 72.5 kg Height/Length: 63 in. BMI: 28.3 ALLERGIES: Prozac, Sulfa Antibiotics The patient's Home Medications are listed below: THE FOLLOWING MEDICATIONS NEED TO BE RECONCILED: Sertraline HCl Oral 150mg, daily The source(s) of the original Home Medication information: EMS patient The following Medications were given to the patient in the Emergency Department: Tylenol [PO] PO 1000 mg, administered: 12/24/2016 3:46:00 PM NICOTINE [TOPICAL] Topical 21 mg, administered: 12/24/2016 3:53:00 PM Xanax [PO] PO 0.5 mg, administered: 12/24/2016 5:00:00 PM Ibuprofen [PO] PO 600 mg, administered: 12/24/2016 7:40:00 PM The following Medications were prescribed to the patient: None.
== END 2016-12-24 21:00 ==
LOC: ED SRH 11:27
DX: T43.222A Poisoning by selective serotonin reuptake inhibitors, intentional self-harm, initial encounter (principal); Y92.9 Unspecified place or not applicable; F17.210 Nicotine dependence, cigarettes, uncomplicated; Z88.2 Allergy status to sulfonamides; Z88.8 Allergy status to other drugs, medicaments and biological substances
CPT/HCPCS: 90100; 92760; 92761; 92762; 92763; 92764; 92765; 92766; 92767; 92780; 93070; 95059; 97000